=== PATIENT | female | born 1980 | race Caucasian/White ===

== ENCOUNTER 2019-12-27 12:01 | Emergency (ER) | payer BC ==
[~2019-12-27] VITALS: Ht 165.1 cm; Wt 69.7 kg
[2019-12-27] MEDS ORDERED: SUMATRIPTAN (12:11)
[2019-12-27] MEDS ORDERED: propanolol (12:11)
[2019-12-27] MEDS ORDERED: PROZ40CA PO (12:11)
[2019-12-27 13:43] LABS: BASO # 0.1 10^3/uL (0.0-0.2); BASO % 0.5 % (0.0-1.0); EOS % 0.1 % (0.0-3.0); HEMATOCRIT 42.5 % (36.0-47.0); HEMOGLOBIN 13.9 g/dl (12.0-15.5); LYMPH # 2.6 10^3/uL (1.5-5.0); LYMPH % 25.8 % (24.0-44.0); MEAN CORPUSCULAR HEMOGLOBIN 28.3 pg (27.0-33.0); MEAN CORPUSCULAR HGB CONC 32.7 g/dl (32.0-36.5); MEAN CORPUSCULAR VOLUME 86.4 fl (80.0-96.0); MONO # 0.6 10^3/uL (0.0-0.8); MONO % 5.5 % (0.0-5.0); NEUTROPHILS # 6.7 10^3/uL (1.5-8.5); NEUTROPHILS % 67.6 % (36.0-66.0); PLATELET COUNT, AUTOMATED 277 10^3/uL (150-450); RED BLOOD COUNT 4.92 10^6/uL (4.00-5.40); WHITE BLOOD COUNT 9.9 10^3/uL (4.0-10.0)
[2019-12-27] MEDS ORDERED: KETOROLAC 30 MG/ML VIAL (J1885) IV ONE (14:15)
[2019-12-27] MEDS ORDERED: METOCLOPRAMIDE INJ 10MG/2ML VIAL (J2765) IV ONE (14:15)
[2019-12-27] MEDS ORDERED: NS 1,000 ML IV ONE (14:15)
[2019-12-27] MEDS ORDERED: diphenhydrAMINE INJ 50MG/ML VIAL (J1200) IV ONE (14:15)
[2019-12-27 16:16] VITALS: BP 106/57
== END 2019-12-27 16:19 | disposition home or self-care (01) ==
LOC: M ED 12:01
DX: G43.909 Migraine, unspecified, not intractable, without status migrainosus (principal); F41.9 Anxiety disorder, unspecified; F33.9 Major depressive disorder, recurrent, unspecified; Z79.899 Other long term (current) drug therapy
CPT/HCPCS: 84702; 85025; 96374; 96375; 99283; J1200; J1885; J2765